=== PATIENT | female | born 1990 ===

== ENCOUNTER 2022-09-19 05:16 | Emergency (ER) | payer OTHER ==
[2022-09-19] MEDS ORDERED: NA CHLORIDE 0.9% 1,000 ML ONE (06:02)
[2022-09-19] MEDS ORDERED: CEFTRIAXONE 1000 MG/VIAL ONE (06:02)
[2022-09-19] MEDS ORDERED: ACETAMINOPHEN 500 MG TAB ONE (06:02)
[2022-09-19 06:48] LABS: Absolute Lymphocytes (CBC) 1.1 K/uL (0.7-4.9); Hematocrit 35.1 % (36.0-45.0); Lymphocytes % 6.1 % (15.3-44.8); MPV 8.1 fL (7.6-11.3); Platelets 250 thou/uL (152-406); RBC Red Blood Cell Count 3.77 M/uL (3.86-4.86)
[2022-09-19 06:50] LABS: Specific Gravity 1.011 (1.005-1.030); Urine Bacteria None Seen /HPF (<20); Urine Bilirubin NEGATIVE (Negative); Urine Blood Trace (Negative); Urine Clarity Clear (Clear); Urine Color Colorless (Yellow); Urine Glucose NEGATIVE (Negative); Urine Mucus Slight /HPF (None Seen); Urine Protein NEGATIVE (Negative); Urine RBC <5 /HPF (None Seen); Urine Urobilinogen Normal (Normal); Urine pH 5.5 (5.0-7.0)
[2022-09-19 06:54] LABS: Protime INR 0.99
[2022-09-19 07:05] LABS: Albumin 2.8 g/dL (3.4-5.0); Bilirubin Total 0.4 mg/dL (0.2-1.0); Potassium 3.8 mEq/L (3.5-5.1); Protein, Total 7.1 g/dL (6.4-8.2)
[2022-09-19 07:50] LABS: Blood Morphology Comment NOT SEEN (NOT SEEN); Platelet Estimate ADEQ
--- NOTE | 2022-09-19 08:21 | EDPHYS ---
Physician Documentation [facility] Name: Emmy Brothers Age: 32 yrs Sex: Female : 1990 Arrival Date: 09/19/2022 Time: 05:16 Bed 6 Private MD: ED Physician Levi Mcgill HPI: 09/19 05:49 This 32 yrs old Female presents to ER via Ambulatory with complaints of Fever. rt 05:49 Patient is a G1, P1 currently 3 days . Patient woke up with a fever tonight. rt She states that her breasts are swollen, red. She denies cough, shortness of breath. She does report having some mild vaginal bleeding but that has been improving since the delivery. Denies other acute complaints at this time. Symptoms are moderate severity, no other aggravating or alleviating factors.. 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 - Social history:: Smoking status: Patient denies any tobacco usage or history of. - Family history:: not pertinent. ROS: 05:49 Cardiovascular: Negative for chest pain, palpitations, and edema, Respiratory: Negative rt for shortness of breath, cough, wheezing, and pleuritic chest pain, Abdomen/GI: Negative for abdominal pain, nausea, vomiting, diarrhea, and constipation, MS/Extremity: Negative for injury and deformity, Skin: Negative for injury, rash, and discoloration, Neuro: Negative for headache, weakness, numbness, tingling, and seizure. 05:49 Constitutional: Positive for chills, fever. Exam: 05:49 Constitutional: This is a well developed, well nourished patient who is awake, alert, rt and in no acute distress. Head/Face: Normocephalic, atraumatic. Cardiovascular: Regular rate and rhythm with a normal S1 and S2. No gallops, murmurs, or rubs. Normal PMI, no JVD. No pulse deficits. Respiratory: Lungs have equal breath sounds bilaterally, clear to auscultation and percussion. No rales, rhonchi or wheezes noted. No increased work of breathing, no retractions or nasal flaring. Abdomen/GI: Soft, non-tender, with normal bowel sounds. No distension or tympany. No guarding or rebound. No evidence of tenderness throughout. Back: No spinal tenderness. No costovertebral tenderness. Full range of motion. Skin: Warm, dry with normal turgor. Normal color with no rashes, no lesions, and no evidence of cellulitis. MS/ Extremity: Pulses equal, no cyanosis. Neurovascular intact. Full, normal range of motion. Neuro: Awake and alert, GCS 15, oriented to person, place, time, and situation. Cranial nerves II-XII grossly intact. Motor strength 5/5 in all extremities. Sensory grossly intact. Cerebellar exam normal. Normal gait. 05:49 Chest/axilla: Recent records, erythematous, no drainage noted.. Vital Signs: 05:34 BP 133 / 92; Pulse 115; Resp 20; Temp 100.6; Pulse Ox 97% ; Weight 63.5 kg; Height 5 vc1 ft. 2 in. ; 06:50 BP 129 / 91; Pulse 93; Resp 18; Pulse Ox 98% on R/A; kd3 08:12 BP 134 / 100; Pulse 108; Resp 18; Pulse Ox 98% on R/A; ld1 08:16 BP 141 / 102; Pulse 109; Resp 17; Temp 98.2(O); Pulse Ox 99% on R/A; me1 05:34 Body Mass Index 25.61 (63.50 kg, 157.48 cm) vc1 MDM: 05:35 Patient medically screened. rt 07:28 Transition of care: Care assumed from Ronald Kasper MD. ms3 08:46 Differential diagnosis: bacterial infection, UTI, Mastitis. Data reviewed: vital signs, ms3 nurses notes, lab test result(s), and as a result, I will transfer patient. Consideration of Admission/Observation Patient transferred. Management of patient was discussed with the following: Patient's OB, Dr Gregory. I considered the following discharge prescriptions or medication management in the emergency department Medications were administered in the Emergency Department. See MAR. Historians other than the Patient: Spouse/Significant Other: Patient's . Care significantly affected by the following chronic conditions: Post day #5. Counseling: I had a detailed discussion with the patient and/or guardian regarding: the historical points, exam findings, and any diagnostic results supporting the discharge/admit diagnosis, lab results, the need to transfer to another facility. ED course: Discussed case with Dr Gregory and she accepts patient to [facility] ER. She has spoken to the ER physician already.. 09/19 05:42 Order name: Blood Culture Adult (2) rt 09/19 05:42 Order name: CBC with Diff; Complete Time: 07:53 rt 09/19 05:42 Order name: CMP; Complete Time: 07:42 rt 09/19 05:42 Order name: Lactate w/ 2H reflex if indic.; Complete Time: 07:42 rt 09/19 05:42 Order name: Protime (+inr); Complete Time: 07:01 rt 09/19 05:42 Order name: Ptt, Activated; Complete Time: 07:01 rt 09/19 05:42 Order name: Urinalysis w/ reflexes; Complete Time: 07:01 rt 09/19 06:52 Order name: Manual Differential; Complete Time: 07:53 EDMS 09/19 05:42 Order name: Accucheck; Complete Time: 06:49 rt 09/19 05:42 Order name: Cardiac monitoring; Complete Time: 06:49 rt 09/19 05:42 Order name: IV Saline Lock - Large Bore; Complete Time: 06:49 rt 09/19 05:42 Order name: Labs collected and sent; Complete Time: 06:49 rt 09/19 05:42 Order name: O2 Per Protocol; Complete Time: 06:49 rt 09/19 05:42 Order name: O2 Sat Monitoring; Complete Time: 06:49 rt 09/19 05:42 Order name: Vital Signs; Complete Time: 06:49 rt Administered Medications: 06:49 Drug: Acetaminophen PO 1000 mg Route: PO; kd3 06:49 Drug: NS 0.9% IV 1000 ml Route: IV; Rate: 1 bolus; Site: right antecubital; kd3 07:40 Follow up: IV Status: Completed infusion me1 06:49 Drug: Rocephin IV 1 grams Route: IV; Rate: calculated rate; Site: right antecubital; kd3 07:41 Follow up: IV Status: Completed infusion me1 Disposition Summary: 09/19/22 08:40 Transfer Ordered Transfer Location: [facility](09/19/22 08:40) ms3 Reason: Higher level of care(09/19/22 08:40) ms3 Condition: Stable(09/19/22 08:40) ms3 Problem: new(09/19/22 08:40) ms3 Symptoms: are unchanged(09/19/22 08:40) ms3 Accepting Physician: (09/19/22 10:44) ld1 Diagnosis - Fever, unspecified(09/19/22 08:40) ms3 - Tachycardia, unspecified(09/19/22 08:40) ms3 - Leukocytosis ms3 Forms: - Medication Reconciliation Form ms3 - SBAR form ms3 Signatures: Dispatcher [employer] EDMS Levi Mcgill, DO ms3 Radha Mcgill, RN RN ld1 Dari Mcgovern RN RN kd3 Ade Andrade RN RN vc1 Ronald Kasper MD MD rt Clair Gutierres RN me1 Corrections: (The following items were deleted from the chart) 07:22 05:42 EKG - Nurse/Tech ordered. rt bp 08:39 08:20 ms3 ms3 08:39 08:20 [facility] ms3 ms3 08:39 08:20 Higher level of care ms3 ms3 08:39 08:20 Stable ms3 ms3 08:39 08:20 new ms3 ms3 08:39 08:20 are unchanged ms3 ms3 08:39 08:20 Fever, unspecified ms3 ms3 08:39 08:20 Tachycardia, unspecified ms3 ms3 10:44 08:40 ms3 ld1
--- NOTE | 2022-09-19 08:21 | ER ---
Nurse's Notes [facility] Name: Emmy Brothers Age: 32 yrs Sex: Female : 1990 Arrival Date: 09/19/2022 Time: 05:16 Bed 6 Private MD: Diagnosis: Fever, unspecified;Tachycardia, unspecified;Leukocytosis Presentation: 09/19 05:34 Chief complaint: Patient states: I had a baby Monday morning and I woke up around vc1 0300 shivering and running a fever of 100.4. My breast are swollen and they hurt and are red. Coronavirus screen: Vaccine status: Patient reports receiving the 2nd dose of the covid vaccine. Plus 1 booster Pfizer Client denies travel out of the [place] in the last 14 days. At this time, the client does not indicate any symptoms associated with coronavirus-19. Ebola Screen: Patient negative for fever greater than or equal to 101.5 degrees Fahrenheit, and additional compatible Ebola Virus Disease symptoms Patient denies exposure to infectious person. Patient denies travel to an Ebola-affected area in the 21 days before illness onset. No symptoms or risks identified at this time. Initial Sepsis Screen: Does the patient meet any 2 criteria? HR > 90 bpm. No. Patient's initial sepsis screen is negative. Does the patient have a suspected source of infection? Yes: Other: red swollen breast, stitches, 5 days post . Risk Assessment: Do you want to hurt yourself or someone else? Patient reports no desire to harm self or others. Onset of symptoms was September 19, 2022 at 03:00. 05:34 Method Of Arrival: Ambulatory vc1 05:34 Acuity: CHRISTY 3 vc1 Triage Assessment: 05:42 General: Appears in no apparent distress. uncomfortable, Behavior is calm, cooperative, vc1 appropriate for age. Pain: Complains of pain in right breast and left breast Pain does not radiate. Quality of pain is described as pressure, sharp, Noted to be grimacing. EENT: No deficits noted. No signs and/or symptoms were reported regarding the EENT system. Neuro: Level of Consciousness is awake, alert, obeys commands, Oriented to person, place, time, situation, Appropriate for age. Cardiovascular: No deficits noted. Respiratory: Airway is patent Respiratory effort is Respiratory pattern is regular. GI: No deficits noted. No signs and/or symptoms were reported involving the gastrointestinal system. : No deficits noted. No signs and/or symptoms were reported regarding the genitourinary system. Derm: Red and inflammed. Musculoskeletal: No deficits noted. No signs and/or symptoms reported regarding the musculoskeletal system. 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 - Social history:: Smoking status: Patient denies any tobacco usage or history of. - Family history:: not pertinent. Screenin:44 [facility] ED Fall Risk Assessment (Adult) History of falling in the last 3 months, vc1 including since admission No falls in past 3 months (0 pts) Confusion or Disorientation No (0 pts) Intoxicated or Sedated No (0 pts) Impaired Gait No (0 pts) Mobility Assist Device Used No (0 pt) Altered Elimination No (0 pt) Score/Fall Risk Level 0 - 2 = Low Risk Oriented to surroundings, Maintained a safe environment, Educated pt \T\ family on fall prevention, incl call for assistance when getting out of bed. Abuse screen: Denies threats or abuse. Nutritional screening: No deficits noted. Tuberculosis screening: No symptoms or risk factors identified. Assessment: 06:50 General: Appears uncomfortable, Behavior is calm, cooperative. Pain: Complains of pain kd3 in left breast and right breast. Neuro: Level of Consciousness is awake, alert, obeys commands, Oriented to person, place, time, situation. Respiratory: Airway is patent Trachea midline Respiratory effort is even, Respiratory pattern is regular, symmetrical. Vital Signs: 05:34 BP 133 / 92; Pulse 115; Resp 20; Temp 100.6; Pulse Ox 97% ; Weight 63.5 kg; Height 5 vc1 ft. 2 in. ; 06:50 BP 129 / 91; Pulse 93; Resp 18; Pulse Ox 98% on R/A; kd3 08:12 BP 134 / 100; Pulse 108; Resp 18; Pulse Ox 98% on R/A; ld1 08:16 BP 141 / 102; Pulse 109; Resp 17; Temp 98.2(O); Pulse Ox 99% on R/A; me1 05:34 Body Mass Index 25.61 (63.50 kg, 157.48 cm) vc1 ED Course: 05:17 Patient arrived in ED. ag3 05:22 Ronald Kasper MD is Attending Physician. rt 05:31 Dari Mcgovern, JASON is Primary Nurse. kd3 05:41 Triage completed. vc1 05:41 Arm band placed on right wrist. vc1 05:45 Patient has correct armband on for positive identification. Bed in low position. Client vc1 placed on continuous cardiac and pulse oximetry monitoring. NIBP monitoring applied. 06:49 Urinalysis w/ reflexes Sent. kd3 06:49 Ptt, Activated Sent. kd3 06:49 Protime (+inr) Sent. kd3 06:49 Lactate w/ 2H reflex if indic. Sent. kd3 06:49 CMP Sent. kd3 06:49 CBC with Diff Sent. kd3 06:49 Blood Culture Adult (2) Sent. kd3 07:28 Attending Physician role handed off by Ronald Kasper MD ms3 07:28 Levi Mcgill DO is Attending Physician. ms3 08:53 initiated transfer to [facility] as requested by Dr Jose Angel Gregory. bd 09:49 No provider procedures requiring assistance completed. Patient transferred, IV remains ld1 in place. Administered Medications: 06:49 Drug: Acetaminophen PO 1000 mg Route: PO; kd3 06:49 Drug: NS 0.9% IV 1000 ml Route: IV; Rate: 1 bolus; Site: right antecubital; kd3 07:40 Follow up: IV Status: Completed infusion me1 06:49 Drug: Rocephin IV 1 grams Route: IV; Rate: calculated rate; Site: right antecubital; kd3 07:41 Follow up: IV Status: Completed infusion me1 Medication: 05:45 VIS not applicable for this client. vc1 Outcome: 08:20 ER care complete, transfer ordered by . ms3 08:40 ER care complete, transfer ordered by . ms3 09:49 Condition: stable ld1 09:49 Instructed on the need for transfer. 10:44 Transferred by ground EMS to [facility]. ld1 10:44 Patient left the ED. ld1 Signatures: Becka Alvarenga [place] ag3 Levi Mcgill DO DO ms3 Radha Mcgill, RN RN ld1 Dari Mcgovern, JASON RN kd3 Ade Andrade RN RN vc1 Ronald Kasper MD MD rt Clair Gutierres RN RN me1
[2022-09-19 10:53] VITALS: BP 141/102; TEMP 98.2; O2SAT 99
== END 2022-09-19 10:44 | disposition short-term general hospital (02) ==
LOC: ER 05:16
DX: O86.4 Pyrexia of unknown origin following delivery (principal); D72.829 Elevated white blood cell count, unspecified; O99.893 Other specified diseases and conditions complicating puerperium
CPT/HCPCS: 96365; 87040 ×2; 85025; 81001; 36415; 85610; 83605; 85730; 80053; 99285; J7030; J0696